=== PATIENT | male | born 1935 | race Caucasian/White ===

== ENCOUNTER 2017-03-05 08:00 | Day surgery (SDC) | payer MEDICARE ==
[2017-03-05] VITALS (8 sets, daily range): BP systolic 125–163; BP diastolic 51–95; PULSE 83–97; RESP 16–20; TEMP 97.7; O2SAT 91–97
[~2017-03-05] VITALS: Ht 167.6 cm; Wt 75.9 kg
[~2017-03-05 08:00] MED LIST: ASTE0.15; DYAZ37.57 PO; LEVO.075 PO; MONT10TA2 PO; OMEP20CA5 PO; ROFL1TAB2 PO; SODIUM CHLOR 0.9% 1000 ML IV SCH; ZOLO25TA PO
[2017-03-05] MEDS ORDERED: MONT10TA2 PO (08:43)
[2017-03-05] MEDS ORDERED: VENTAER INH (08:43)
[2017-03-05] MEDS ORDERED: XOLA150S SQ (08:43)
[2017-03-05] MEDS ORDERED: BROV15NE NEB (08:43)
[2017-03-05] MEDS ORDERED: ASTE0.15 EACH NARE (08:43)
[2017-03-05] MEDS ORDERED: BUDE0.5S NEB (08:43)
[2017-03-05] MEDS ORDERED: PRIL20TA2 PO (08:43)
[2017-03-05] MEDS ORDERED: BUDE1SUS2 EACH NARE (08:43)
[2017-03-05] MEDS ORDERED: IPRA0.06 EACH NARE (08:43)
[2017-03-05] MEDS ORDERED: BIOT50006 PO (08:43)
[2017-03-05] MEDS ORDERED: ALBU0.08 NEB (08:43)
[2017-03-05] MEDS ORDERED: LEVO112T2 PO (08:43)
[2017-03-05 08:58] LABS: AUTOMATED NEUTROPHIL # 3.5 TH/MM3 (1.8-7.7); BASOPHIL # 0.1 TH/MM3 (0-0.2); BASOPHIL % 1.2 % (0.0-2.0); EOSINOPHIL # 0.2 TH/MM3 (0-0.4); HEMATOCRIT 43.9 % (39.0-51.0); HEMOGLOBIN 14.7 GM/DL (13.0-17.0); LYMPHOCYTE # 1.2 TH/MM3 (1.0-4.8); MEAN CELL VOLUME 87.4 FL (80.0-100.0); MEAN CORPUSCULAR HEMOGLOBIN 29.2 PG (27.0-34.0); MEAN CORPUSCULAR HGB CONC 33.5 % (32.0-36.0); MEAN PLATELET VOLUME 7.9 FL (7.0-11.0); MONO % 12.2 % (0.0-8.0); MONOCYTE # 0.7 TH/MM3 (0-0.9); NEUT % 62.6 % (16.0-70.0); PLATELET COUNT 205 TH/MM3 (150-450); RED BLOOD COUNT 5.02 MIL/MM3 (4.50-5.90); RED CELL DISTRIBUTION WIDTH 14.3 % (11.6-17.2); WHITE BLOOD COUNT 5.6 TH/MM3 (4.0-11.0)
[2017-03-05 09:10] LABS: INTERNATIONAL NORMALIZED RATIO 1.1 RATIO; PROTHROMBIN TIME - PATIENT 12.1 SEC (9.8-11.6)
[2017-03-05] MEDS ORDERED: LIDOCAINE HCL 1% 20 ML VIAL ONE (09:20)
[2017-03-05] MEDS ORDERED: MIDAZOLAM HCL 2 MG/2 ML VIAL ONE (09:45)
--- NOTE | 2017-03-05 10:37 | PD.RAD ---
Post CT Procedure Prog Note Pre Procedure Diagnosis: (1) Liver mass Post Procedure Diagnosis: (1) Liver mass Procedure Date: Mar 05, 2017 Supervising Radiologist: Dl Donato Anesthesia: Conscious Sedation Plan of Activity Patient to Unit: ROPU Patient Condition: Good See PACS Report for procedural detail/treatment Dl Donato MD Mar 05, 2017 10:37
[2017-03-05] MEDS ORDERED: HYDROmorphone HCL 2 MG TAB PO PRN (11:00)
--- NOTE | 2017-03-05 12:21 | RADRPT ---
EXAM DATE/TIME: 03/05/2017 10:01 [place] COMPARISON: No previous studies available for comparison. INDICATIONS : History of liver mass with plans for radiation therapy. Image guided fiducial rukhsana er placement has been requested. SEDATION TIME: 30 minutes MEDICATION(S): 1.) 2 mg midazolam (Versed) IV 2.) 150 mcg fentanyl (Sublimaze) IV DEVICE(S): 1.) fiducial needle MEDICAL HISTORY : Liver mass. SURGICAL HISTORY : None. ENCOUNTER: Initial ACUITY: 1 day PAIN SCORE: 0/10 LOCATION: liver PROCEDURE: PROCEDURE : CT guided fiducial marker placement The risks, benefits and alternatives to the procedure were explained and verbal and written consent w as obtained. Using automated exposure control and adjustment of the mA and/or kV according to patien t size, radiation dose was kept as low as reasonably achievable to obtain optimal diagnostic quality images. The site was prepped in sterile fashion. Full sterile technique was used, including cap, ma sk, sterile gloves and gown and a large sterile sheet. Hand hygiene and 2% chlorhexidine and/or beta dine/alcohol prep was utilized per protocol for cutaneous antisepsis. The skin and subcutaneous tiss ues were infiltrated with local anesthetic solution. DICOM format image data is available electronic ally for review and comparison. The mass in segment 4 of liver was targeted with CT. 2 fiducial markers were placed. Fiducial markers were placed in the medial and lateral margins of the mass at the mid coronal level. CONCLUSION: 1. Uncomplicated CT guided fiducial marker placement, as above. Dl Donato MD on March 05, 2017 at 11:14 Board Certified Radiologist. This report was verified electronically.
== END 2017-03-05 14:48 | disposition home or self-care (01) ==
LOC: HRAD 08:00 → HRIP 08:03 → HRAD 14:48
PROVIDERS: ATTEND Specialist
DX: R16.0 Hepatomegaly, not elsewhere classified (principal)
CPT/HCPCS: 49411; 77012; 85025; 85610; 85730; 99152; 99153; J2250; J3010; J7030